=== PATIENT | female | born 1970 | race Two or more races ===

== ENCOUNTER 2024-07-23 00:46 | Emergency (ER) | payer OTHER ==
[~2024-07-23] VITALS: Ht 162.6 cm; Wt 57.2 kg
[2024-07-23] MEDS ORDERED: APLENZIN174 MG PO (01:13)
[2024-07-23] MEDS ORDERED: HALOPERIDOL LACTATE 5 MG/ML AMPUL IM STA (02:15)
[2024-07-23] MEDS ORDERED: DIPHENHYDRAMINE HCL 50 MG/ML VIAL 1ML IM STA (02:16)
[2024-07-23] MEDS ORDERED: KETOROLAC TROMETHAMINE 30 MG VIAL IV STA (02:16)
[2024-07-23] MEDS ORDERED: KETOROLAC TROMETHAMINE 30 MG VIAL ONE (02:17)
[2024-07-23] MEDS ORDERED: HALOPERIDOL LACTATE 5 MG/ML AMPUL ONE (02:17)
[2024-07-23] MEDS ORDERED: DIPHENHYDRAMINE HCL 50 MG/ML VIAL 1ML ONE (02:17)
== END 2024-07-23 05:25 | disposition home or self-care (01) ==
LOC: ER 00:47
DX: G43.909 Migraine, unspecified, not intractable, without status migrainosus (principal); R11.0 Nausea